=== PATIENT | female | born 1995 | race Caucasian/White ===

== ENCOUNTER 2016-08-03 22:22 | Emergency (ER) | payer OTHER | END 2016-08-03 22:46 | disposition home or self-care (01) | LOC: FER 22:22 | DX: S90.31XA Contusion of right foot, initial encounter (principal); S80.01XA Contusion of right knee, initial encounter; F84.0 Autistic disorder; Z88.0 Allergy status to penicillin; W19.XXXA Unspecified fall, initial encounter; Y92.091 Bathroom in other non-institutional residence as the place of occurrence of the external cause ==

== ENCOUNTER 2016-08-28 22:58 | Emergency (ER) | payer OTHER | END 2016-08-29 00:32 | disposition home or self-care (01) | LOC: FER 22:58 | DX: S93.401A Sprain of unspecified ligament of right ankle, initial encounter (principal); Z88.0 Allergy status to penicillin; V89.2XXA Person injured in unspecified motor-vehicle accident, traffic, initial encounter; Y92.410 Unspecified street and highway as the place of occurrence of the external cause | CPT/HCPCS: 73610; 73630; 99283 ==